=== PATIENT | female | born 2000 | race Caucasian/White ===

== ENCOUNTER 2023-09-25 11:08 | Emergency (ER) | payer BC, SELFPAY ==
[2023-09-25] VITALS (10 sets, daily range): BP systolic 122–147; BP diastolic 62–79; PULSE 90–101; RESP 16–20; TEMP 36.6–36.8; O2SAT 96–100
--- NOTE | 2023-09-25 11:11 | ECG_ITS ---
Test Date: 2023-09-25 11:39:46 Measurements Intervals [place] Rate: 94 P: 16 IA: 176 QRS: 42 QRSD: 97 T: 8 QT: 346 QTc: 433 Interpretive Statements SINUS RHYTHM No previous ECG available for comparison Electronically Signed On 09-25-2023 12:47:28 CDT by Yisel Al M.D.
[2023-09-25 12:00] LABS: Basophils Percent Auto 0.2 % (0.2-1.2); Eosinophils Absolute Auto 0.2 K/mm3 (0-0.3); Eosinophils Percent Auto 2.6 % (0-4.4); Hematocrit 35.5 % (37.0-47.0); Hemoglobin 11.6 g/dL (12.0-15.0); Immature Granulocyte Absolute 0.03 K/mm3 (0.00-0.031); Immature Granulocyte Percent A 0.4 % (0-0.5); Lymphocytes Absolute Auto 1.31 K/mm3 (0.9-3.2); Lymphocytes Percent Auto 15.4 % (18.3-44.2); Mean Corpuscular HGB Conc 32.7 g/dl (32-36); Mean Corpuscular Hemoglobin 28.1 pg (26-34); Mean Platelet Volume 9.9 fl (7.4-10.4); Monocytes Absolute Auto 0.6 K/mm3 (0.1-0.6); Neutrophils Absolute Auto 6.3 K/mm3 (1.3-6.7); Neutrophils Percent Auto 74.4 % (45.5-73.1); Platelet Count Result 226 k/mm3 (150-375); Red Blood Count 4.13 M/mm3 (4.2-5.4); White Blood Count 8.5 K/mm3 (4.5-10.0)
--- NOTE | 2023-09-25 12:13 | ED.SOB ---
HPI - SOB/Dyspnea General Chief Complaint: Shortness of Breath/Dyspnea Stated Complaint: SOB, 9 WEEKS preg Time Seen by Provider: 09/25/23 12:00 History of Present Illness HPI Narrative: Patient is a 23-year-old female with history of anxiety/depression, approximately 9 weeks here with shortness of breath. She states that over the last 3-4 days she has had significant exertional shortness of breath. she notes that even at rest she gets short of breath but it is significantly worse on exertion. She denies any associated chest pain. She denies any calf pain or leg swelling. She denies any cough, congestion, fever, chills. No prior history of PE or DVT. She notes that she has had some associated tingling sensation in her bilateral hands and face. Her OBGYN is Dr. Arzola, she has had a 1st trimester ultrasound which confirmed intrauterine . She denies any vaginal bleeding or discharge, denies any abdominal pain. She has had some nausea, has been taking antiemetics perscribed by her OBGYN which have helped significantly with her morning sickness. Related Data Allergies Allergy/AdvReac Type Severity Reaction Status Date / Time No Known Allergies Allergy Verified 09/25/23 11:15 Review of Systems Review of Systems: All systems reviewed & are unremarkable except as noted in HPI and below Exam Narrative: GENERAL: Well-appearing, well-nourished, and in no acute distress. HEAD: Normocephalic, atraumatic. EYES: PERRLA and EOMI. ENT: Nares clear. Mucous membranes moist. NECK: Supple. CHEST: Clear to auscultation. No respiratory distress. HEART: Regular rate and rhythm. Normal peripheral pulses. ABDOMEN: Soft, nontender, nondistended. EXTREMITIES: Normal range of motion. No edema. No calf tenderness SKIN: Warm, dry, no rash. NEURO: No focal deficits. Alert and oriented x3. PSYCH: Normal mood and affect. Course Course Emergency Course: Chart review performed. Patient here with SOB since Friday, reportedly 9 weeks . Triage vitals show tachycardia to 100, mild hypertension, otherwise normal. No prior visits in our system. Patient seen evaluated, nontoxic appearing. She has significantly worsened shortness of breath over the last 3-4 days, does feel somewhat improved today. She has clear lungs, with no infectious signs or symptoms. Given her first-trimester and tachycardia, I do believe that we need to do a screening D-dimer as she is at higher risk for PE due to her . Patient is agreeable to workup and plan. Lab work and imaging reviewed, CBC unremarkable, D-dimer negative. Electrolytes grossly within normal limits. Normal troponin, normal BNP. COVID, influenza, RSV negative. TSH pending, believe this can be followed with PCP/OBGYN. Repeat vitals normal. The results of pertinent diagnostic studies and exam findings were discussed. The patient?s provisional diagnosis and plan of care were discussed with the patient and present family. The patient and/or present family expressed understanding of the diagnosis and plan. The nurse was instructed to provide written instructions and appropriate follow-up information. The patient understands their need and responsibility to obtain additional follow-up as instructed. The risks of medications administered and prescribed were discussed with the patient and family present. Vital Signs Vital signs: Vital Signs Temperature 98.2 F 09/25/23 11:09 Pulse Rate 100 09/25/23 11:09 Respiratory Rate 20 09/25/23 11:09 Blood Pressure 147/72 H 09/25/23 11:09 Pulse Oximetry 98 09/25/23 11:09 Oxygen Delivery Room Air 09/25/23 11:09 Temperature 97.9 F 09/25/23 15:45 Pulse Rate 98 09/25/23 14:30 Respiratory Rate 16 09/25/23 15:45 Blood Pressure 122/78 09/25/23 15:45 Pulse Oximetry 99 09/25/23 15:45 Oxygen Delivery Room Air 09/25/23 13:50 MDM - SOB/Dyspnea Lab Data 09/25/23 11:54
[2023-09-25 12:17] LABS: Alanine Aminotransferase 15 U/L (6-35); Albumin Level 4.1 g/dL (3.5-5.1); Alkaline Phosphatase 51 U/L (38-126); Anion Gap 6 mmol/L (4-12); Aspartate Amino Transferase 19 U/L (14-36); Bilirubin,Total 0.3 mg/dL (0.2-1.3); Blood Urea Nitrogen 6 mg/dL (7-17); Calcium 9.2 mg/dL (8.4-10.2); Carbon Dioxide 23 mmol/L (22-30); Chloride 109 mmol/L (98-107); Estimated CRCL calculation 160 ml/min; Estimated Glomerular Filt Rate > 60; Glucose 74 mg/dL (65-110); Sodium 138 mmol/L (137-145)
[2023-09-25 12:36] LABS: Influenza A QL RT-PCR Negative (Negative); Influenza B QL RT-PCR Negative (Negative); RSV RNA, RT-PCR Negative (Negative); SARS-CoV-2 RNA PCR Negative (Negative)
[2023-09-25 14:04] LABS: NT Pro B Type Natriuretic Pept 47 pg/mL (19.9-100); Troponin I < 0.012 ng/mL (0.000-0.034)
[2023-09-25 15:46] LABS: D Dimer < 0.27 ug/mL (<0.48)
== END 2023-09-25 16:10 | disposition home or self-care (01) ==
PROVIDERS: Family Medicine; Emergency Provider Student in an Organized Health Care Education/Training Program
DX: O26.891 Other specified pregnancy related conditions, first trimester (principal); R06.02 Shortness of breath; Z20.822 Contact with and (suspected) exposure to COVID-19; Z3A.09 9 weeks gestation of pregnancy
CPT/HCPCS: 36415; 80053; 83880; 84443; 84484; 85025; 85380; 87637; 93005; 99284

== ENCOUNTER 2024-03-05 10:21 | Observation (INO) | payer BC, SELFPAY ==
[2024-03-05] VITALS (103 sets, daily range): BP systolic 103–141; BP diastolic 53–94; PULSE 85–118; RESP 20; TEMP 36.1–36.2; O2SAT 91–100; BMI 45.5
[2024-03-05 11:08] LABS: Add Urine Microscopic? YES; Appearance Urine Cloudy (Clear); Bacteria Urine None Seen /hpf; Bilirubin Urine Negative (Negative); Blood Urine Negative (Negative); Color Urine Yellow (Yellow); Glucose Urine UA Negative (Negative); Ketones Urine Negative (Negative); Leukocyte Esterase Ur Negative LEU/UL (Negative); Nitrate Urine Negative (Negative); Non Pathogenic Casts 0-2; Protein Urine Negative (Negative); RBC Urine 0-2 /hpf (0-2); Specific Grav Ur 1.016 (1.001-1.035); Squamous Epithelial Cell Urine Few /hpf (Few); Urobilinogen Urine 0.2 mg/dL (<2.0); WBC Urine 0-5 /hpf (0-3)
[2024-03-05] MEDS: BETAMETHASONE SOD PHOS/ACETATE 30 MG/5 ML VIAL 12 MG IM (11:59)
--- NOTE | 2024-03-05 12:10 | PC.NURSE ---
1151- Dr. Arzola notifed of patient having contractions every 8-10 min with patient rating them a 7/10. SVE (1.5/60/-2). Orders received to administer betamethasone, terbutaline, and magnesium sulfate.
[2024-03-05] MEDS: LACTATED RINGERS 1,000 ML 75 ML IV CONT (12:20)
[2024-03-05] MEDS: MAGNESIUM SULF 6 GM/WATER150ML 6 GM/150 ML BAG IVPB (12:21)
[2024-03-05] MEDS: TERBUTALINE SULFATE 1 MG/ML VIAL 0.25 MG SUB-Q ×2 (12:25→17:16)
--- NOTE | 2024-03-05 12:48 | PC.NURSE ---
1228- Dr. Arzola updated on patient status, orders received to hold magnesium and perform SVE at 1300.
--- NOTE | 2024-03-05 12:51 | OBADM ---
This patient, Darlene Samuel, admitted to the OB room [facility] for observation. Patient/family oriented to hospital policies and general routines including ID bracelet, bed and alarms, visiting hours, pain management, procedures, bathroom and other care routines, personal items, smoking policy, room service/diet, and visiting hours. Patient/Family are encouraged to report perceived risks to care and to ask questions if they do not understand what they are told or what they should do.
--- NOTE | 2024-03-05 13:35 | PC.NURSE ---
1310- Dr. Arzola updated on unchanged SVE. Orders received to monitor FHT and contractions.
--- NOTE | 2024-03-05 13:55 | P.HP_ITS ---
H&P: HPI History of Present Illness Date/Time: 03/05/24 13:55 Chief Complaint: Contractions Narrative: 23-year-old primipara at 32 weeks gestation who presented with contractions. She denies any loss of fluid or vaginal bleeding. She reports good movement. She denies any nausea, vomiting, fever, chills. She denies any chest pain or shortness of breath. Review of Systems Review of Systems: All systems reviewed & are unremarkable except as noted in HPI and below Constitutional: Constitutional: Denies chills, Denies fatigue, Denies fever(s) and Denies weakness Eyes: Eyes: Denies blurry vision, Denies change in vision, Denies loss of peripheral vision, Denies loss of vision, Denies other visual disturbances and Denies eye pain ENT: Denies vertigo, Denies dizziness, Denies hearing loss, Denies mouth pain, Denies nasal obstruction, Denies neck mass and Denies neck pain Cardiovascular: Cardiovascular: Denies chest pain, Denies diaphoresis, Denies syncope, Denies leg edema and Denies dyspnea Respiratory: Respiratory: Denies chest congestion, Denies cough, Denies hemoptysis, Denies dyspnea and Denies wheezing Gastrointestinal: Gastrointestinal: Denies abdominal pain, Denies constipation, Denies diarrhea, Denies nausea and Denies vomiting Genitourinary: Genitourinary: Denies hematuria, Denies change in libido, Denies nocturia, Denies genital lesions, Denies flank pain and Denies urinary urgency Musculoskeletal: Musculoskeletal: Denies abnormal gait, Denies back pain, Denies myalgias, Denies arthralgias, Denies joint swelling, Denies muscle weakness and Denies neck pain Integumentary/Breasts: Skin/Breast: Denies swelling, Denies breast pain, Denies breast mass, Denies dry skin, Denies nipple discharge, Denies unusual bruising and Denies jaundice Neurologic: Denies Neuro-related abnormal movements, Denies Abnormal speech present, Denies abnormal gait, Denies behavioral changes, Denies confusion, Denies vertigo, Denies dizziness, Denies syncope, Denies loss of vision, Denies memory loss, Denies convulsions and Denies weakness Psychiatric: Psychiatric: Denies abnormal sleep pattern, Denies behavioral changes, Denies change in libido, Denies confusion, Denies depression, Denies anhedonia and Denies memory loss Endocrine: Endocrine: Reports no additional endocrine complaints, Denies barcenas e in libido and Denies fatigue Hematologic/Lymphatic: Hematologic/Lymphatic: Reports no additional hematologic/lymphatic complaints Allergic/Immunologic: Allergic/Immunologic: Reports no additional allergic/immunologic complaints and Denies wheezing Meds Home Medications and Allergies Home Medications Medication Instructions Recorded Confirmed Type acetaminophen 500 mg tablet 1,000 mg PO Q6H PRN Pain 02/28/24 02/28/24 History (Tylenol Extra Strength) aspirin 81 mg chewable tablet 81 mg PO DAILY 02/28/24 02/28/24 History bupropion HCl 300 mg 24 hr tablet, 300 mg PO DAILY 02/28/24 02/28/24 History extended release escitalopram oxalate 10 mg tablet 10 mg PO DAILY 02/28/24 02/28/24 History ferrous sulfate 142 mg (45 mg 142 mg PO DAILY 02/28/24 02/28/24 History iron) tablet,extended release vit no.95-ferrous 1 tablet PO DAILY 02/28/24 02/28/24 History fumarate 28 mg-folic acid 800 mcg tablet () promethazine 25 mg tablet 25 mg PO Q6H PRN Nausea #15 tabs 02/28/24 Rx Allergies Allergy/AdvReac Type Severity Reaction Status Date / Time No Known Allergies Allergy Verified 09/25/23 11:15 Vital Signs Vital Signs - 24 hr 03/05/24 11:01 03/05/24 11:16 03/05/24 12:23 Pulse Rate 98 96 Blood Pressure 126/64 128/65 Pulse Oximetry 97 Oxygen Delivery 03/05/24 12:25 03/05/24 12:30 03/05/24 12:31 Pulse Rate 92 93 Blood Pressure 103/53 L 110/57 L Pulse Oximetry 97 97 Oxygen Delivery 03/05/24 12:35 03/05/24 12:57 03/05/24 12:58 Pulse Rate 96 Blood Pressure 141/74 H Pulse Oximetry 97 96 Oxygen Delivery 03/05/24 13:01 03/05/24 13:02 03/05/24 13:07 Pulse Rate 92 Blood Pressure 136/75 Pulse Oximetry 97 99 Oxygen Delivery 03/05/24 13:12 03/05/24 13:17 03/05/24 13:22 Pulse Rate Blood Pressure Pulse Oximetry 98 96 96 Oxygen Delivery 03/05/24 13:27 03/05/24 13:32 03/05/24 13:37 Pulse Rate Blood Pressure Pulse Oximetry 96 97 97 Oxygen Delivery 03/05/24 13:42 03/05/24 13:47 03/05/24 13:52 Pulse Rate Blood Pressure Pulse Oximetry 98 97 97 Oxygen Delivery 03/05/24 12:00 Pulse Rate Blood Pressure Pulse Oximetry Oxygen Delivery Room Air Exam Const: General: cooperative, healthy appearing, comfortable and no acute distress Orientation/consciousness: oriented to person, oriented to place and oriented to time HENMT: Head: normal to inspection Ears: external ears normal Face/Nose/Sinus: Normal external nose present and normal facial exam Face and sinus: normal facial exam Eyes: General: appearance normal, both eyes and all related structures Neck: Neck: normal visual inspection, trachea midline and supple Resp: Auscultation: clear to auscultation bilaterally, no crackles, no rales, no rhonchi and no wheezes Cardio: Rate: regular rate Rhythm: regular rhythm Heart sounds: no click, no murmurs and no rubs GI: GI Palp: No abdominal tenderness, No Soft to palpation, No Tenderness to palpation present (GI) and No Palpable mass present Auscultation: normal bowel sounds Skin: General skin exam: normal color and no rashes or lesions noted Neuro: General: oriented to person, oriented to place and oriented to time Extrem: General: normal to inspection, no joint enlargement, no clubbing, cyanosis or edema, no pedal edema and no calf tenderness Psych: Appearance: grossly normal Mental Status: mental status grossly normal Speech and movement: Normal speech and movement present H&P: Results Labs Labs: Urine 03/05/24 Range/Units 10:45 Urine Color Yellow (Yellow) Urine Appearance Cloudy H (Clear) Urine pH 6.0 (5.0-9.0) Ur Specific [place] 1.016 (1.001-1.035) Urine Protein Negative (Negative) mg/dL Urine Glucose (UA) Negative (Negative) mg/dL Assessment and Plan Assessment and plan (1) contractions: Code(s): O47.00 - False labor before 37 completed weeks of gestation, unspecified trimester Status: Acute Plan will 23-year-old primipara with contractions at 32 weeks gestation. Administering steroids, patient was given IV fluids and terbutaline. To start oral long-acting nifedipine. Considered magnesium sulfate. Reassuring status. To observe for labor.
[2024-03-05] MEDS: NIFEdipine 30 MG TAB.ER.24 PO ×2 (14:05→17:15)
--- NOTE | 2024-03-05 20:39 | PC.NURSE ---
2032: RN phoned Dr. Arzloa to inform him of patient's most recent SVE, and patient's occasional contractions that come and go. OB aware that RN has been unable to keep FHTs on the monitor constantly since 2014 due to movement but FHTs have been category 1 all day. Orders to discharge patient home with labor precautions and orders for Procardia 60 XL Daily as well as orders for patient to come back tomorrow at 1200 for her second dose of celestone.
== END 2024-03-05 21:00 | disposition home or self-care (01) ==
PROVIDERS: Admitting Provider Obstetrics & Gynecology; Visit Provider Obstetrics & Gynecology
DX: O47.03 False labor before 37 completed weeks of gestation, third trimester (principal); Z3A.32 32 weeks gestation of pregnancy; Z79.82 Long term (current) use of aspirin; Z79.899 Other long term (current) drug therapy
CPT/HCPCS: 81001; 96372; 96374; A9270; G0378; G0379; J0702; J3105; J3475; J7120

== ENCOUNTER 2024-03-06 12:09 | Outpatient (CLI) | payer BC, SELFPAY ==
[2024-03-06] MEDS: BETAMETHASONE SOD PHOS/ACETATE 30 MG/5 ML VIAL 12 MG IM (12:25)
== END 2024-03-06 12:33 | disposition home or self-care (01) ==
PROVIDERS: Visit Provider Obstetrics & Gynecology
DX: Z36.84 Encounter for antenatal screening for fetal lung maturity (principal)
CPT/HCPCS: 96372; J0702

== ENCOUNTER 2024-03-09 02:48 | Observation (INO) | payer BC, SELFPAY ==
[2024-03-09] VITALS (37 sets, daily range): BP systolic 102–124; BP diastolic 50–72; PULSE 74–106; O2SAT 93–100; BMI 45.5
[2024-03-09] MEDS: LACTATED RINGERS 1,000 ML 999 ML IV CONT (04:09)
--- NOTE | 2024-03-09 06:23 | PC.NURSE ---
Called Dr. Moralez to inform of current contraction pattern, maternal demeanor, and last SVE. MD verbalized understanding, would like pt to be discharged at this time. RN repeated order back to confirm.
--- NOTE | 2024-03-09 18:41 | PM.OBTRLD ---
OB - Triage/Final Diagnosis Visit Information Comments/Additional reasons for admission: I have assessed the risk for this patient, Darlene Samuel, and determined that she would benefit from observation care. Evaluation Vital signs: Vital Signs - 24 hr 03/09/24 03:16 03/09/24 03:17 03/09/24 03:21 Pulse Rate 100 Blood Pressure 123/65 Pulse Oximetry 97 94 Oxygen Delivery 03/09/24 03:26 03/09/24 03:31 03/09/24 03:36 Pulse Rate 89 Blood Pressure 111/62 Pulse Oximetry 96 93 96 Oxygen Delivery 03/09/24 03:41 03/09/24 03:46 03/09/24 03:51 Pulse Rate Blood Pressure Pulse Oximetry 96 96 96 Oxygen Delivery 03/09/24 03:56 03/09/24 04:01 03/09/24 04:10 Pulse Rate 88 Blood Pressure 111/56 L Pulse Oximetry 96 97 Oxygen Delivery 03/09/24 04:15 03/09/24 04:20 03/09/24 04:25 Pulse Rate Blood Pressure Pulse Oximetry 97 96 99 Oxygen Delivery 03/09/24 04:30 03/09/24 04:31 03/09/24 04:35 Pulse Rate 87 Blood Pressure 124/72 Pulse Oximetry 96 98 Oxygen Delivery 03/09/24 04:40 03/09/24 04:56 03/09/24 05:01 Pulse Rate Blood Pressure Pulse Oximetry 97 98 98 Oxygen Delivery 03/09/24 05:06 03/09/24 05:11 03/09/24 05:14 Pulse Rate Blood Pressure Pulse Oximetry 97 98 100 Oxygen Delivery 03/09/24 05:19 03/09/24 05:23 03/09/24 05:24 Pulse Rate 81 Blood Pressure 117/66 Pulse Oximetry 99 98 Oxygen Delivery 03/09/24 05:29 03/09/24 05:31 03/09/24 05:54 Pulse Rate 74 Blood Pressure 102/55 L Pulse Oximetry 99 97 Oxygen Delivery 03/09/24 05:59 03/09/24 06:04 03/09/24 06:09 Pulse Rate Blood Pressure Pulse Oximetry 96 97 95 Oxygen Delivery 03/09/24 06:14 03/09/24 06:19 03/09/24 06:24 Pulse Rate Blood Pressure Pulse Oximetry 94 94 98 Oxygen Delivery 03/09/24 06:37 03/09/24 06:37 Pulse Rate Blood Pressure 102/50 L Pulse Oximetry Oxygen Delivery Room Air Final Diagnosis (1) contractions: Code(s): O47.00 - False labor before 37 completed weeks of gestation, unspecified trimester Status: Acute
== END 2024-03-09 07:00 | disposition home or self-care (01) ==
PROVIDERS: Admitting Provider Obstetrics & Gynecology; Visit Provider Obstetrics & Gynecology
DX: O47.03 False labor before 37 completed weeks of gestation, third trimester (principal); Z3A.33 33 weeks gestation of pregnancy
CPT/HCPCS: 96360; G0378; G0379; J7120